=== PATIENT | male | born 1960 | race Caucasian/White ===

== ENCOUNTER 2020-02-27 00:37 | Outpatient (CLI) | payer BC, SELFPAY ==
[2020-02-27 19:34] LABS: SARS-CoV-2 RNA PCR Negative
== END 2020-02-27 00:38 | disposition home or self-care (01) ==
LOC: ANHCOVIDDT 00:37
PROVIDERS: PCP Internal Medicine; Visit Provider Internal Medicine Gastroenterology
DX: Z01.812 Encounter for preprocedural laboratory examination (principal); Z20.828 Contact with and (suspected) exposure to other viral communicable diseases
CPT/HCPCS: 87635; C9803; U0003

== ENCOUNTER 2020-02-29 01:43 | Day surgery (SDC) | payer BC, SELFPAY ==
[2020-02-16 13:34] VITALS: BMI 27.5
--- NOTE | 2020-02-27 14:43 | WPDANESEPPF ---
Anes - Initial Pre Proc Eval Procedure: Operation Date: 02/29/20 09:00 Proposed Procedures p Screening Colonoscopy - Daniel Hoover MD Date/Time: 02/27/20 14:43 Surgeon: Daniel Hoover MD Pre Op Diagnosis: Neoplasm Screening Patient Data Age: 59 Gender: M Height: 1.78 m Weight: 87 kg Allergies Allergy/AdvReac Type Severity Reaction Status Date / Time No Known Allergies Allergy Mild Verified 02/29/20 08:13 Home Medications Medication Instructions Recorded Confirmed Type aspirin 81 mg tablet,delayed 81 mg PO BID 09/15/19 02/16/20 History release glimepiride 2 mg tablet See Rx Instructions PO .COMPLEX 09/21/19 02/16/20 Rx #270 tablet losartan 50 mg tablet See Rx Instructions .ROUTE 09/22/19 02/16/20 Rx .COMPLEX #90 tablet sitagliptin 50 mg-metformin ER 2 tablet PO DAILY #180 tablet 01/26/20 02/16/20 Rx 1,000 mg tablet,extended release 24h mp empagliflozin 25 mg tablet 25 mg PO DAILY #90 tablet 02/21/20 Rx ezetimibe 10 mg tablet See Rx Instructions .ROUTE 02/21/20 Rx .COMPLEX #90 tablet Patient hx anesthesia problems: none Family hx anesthesia problems: none PMFSH Past Medical History Medical History (Updated 02/29/20 @ 08:41 by Keon Sexton DO) Benign essential hypertension Chronic obstructive pulmonary disease, unspecified DM w/o complication type II, uncontrolled History of CVA (cerebrovascular accident) 2012, right sided sensory deficit Polyneuropathy Surgical History Surgical History Status post bilateral hip replacements Social History Social History Smoking status: Never smoker Second hand tobacco smoke exposure: Yes Alcohol intake: never Anes - Eval Final PreProcedure Day of Procedure 02/27/20 14:43 Patient weight: overweight Heart: regular rate and rhythm Lungs: clear to auscultation and normal air movement Airway: Mallampati scale class II Neurological: alert and oriented Last oral intake: >/= 8 hours ASA classification: III Emergent: no Anesthetic plan: proceed Anesthesia type and monitoring: general GIVS and standard monitoring Informed Consent: The patient's anesthetic plan and its attendant risks and benefits were discussed with the patient/family/POA. Questions were solicited and answers provided to the satisfaction of the patient/family/POA.
[2020-02-29 08:14] VITALS: BMI 26.4
[2020-02-29 08:17] VITALS: BP 148/76; PULSE 75; RESP 20; TEMP 36.3; O2SAT 100
[2020-02-29] MEDS: LACTATED RINGERS 1,000 ML 150 ML IV CONT (08:30)
[2020-02-29 08:32] LABS: Glucose Point of Care 145 (65-105)
--- NOTE | 2020-02-29 08:54 | PM.HPGS ---
History of Present Illness History of Present Illness Consent: Risks, benefits, and alternatives have been discussed and questions answered. Patient agrees to proceed with procedure. Chief complaint: Neoplasm Screening Narrative: Everardo Martin is a 59 year old male here for screening colonoscopy, last one 10 years ago Review of Systems Constitutional: Constitutional: Denies headache(s) and Denies weakness Eyes: Eyes: Denies blurry vision ENT: Reports Normal hearing present, Denies headache(s) and Denies neck pain Cardiovascular: Cardiovascular: Denies chest pain and Denies dyspnea Respiratory: Respiratory: Denies dyspnea Gastrointestinal: Gastrointestinal: Reports no additional gastrointestinal complaints Genitourinary: Genitourinary: Denies dysuria Musculoskeletal: Musculoskeletal: Denies neck pain Integumentary/Breasts: Skin/Breast: Denies dry skin Neurologic: Reports Normal hearing present, Denies headache(s) and Denies weakness Psychiatric: Psychiatric: Denies anxiety Endocrine: Endocrine: Denies change in body appearance Hematologic/Lymphatic: Hematologic/Lymphatic: Denies easy bleeding Allergic/Immunologic: Allergic/Immunologic: Denies urticaria PMFSH Past Medical History Medical History (Updated 02/29/20 @ 08:41 by Keon Sexton DO) Benign essential hypertension Chronic obstructive pulmonary disease, unspecified DM w/o complication type II, uncontrolled History of CVA (cerebrovascular accident) 2012, right sided sensory deficit Polyneuropathy Surgical History Surgical History Status post bilateral hip replacements Social History Social History Smoking status: Never smoker Second hand tobacco smoke exposure: Yes Alcohol intake: never Meds Home Medications and Allergies Home Medications Medication Instructions Recorded Confirmed Type aspirin 81 mg tablet,delayed 81 mg PO BID 09/15/19 02/16/20 History release glimepiride 2 mg tablet See Rx Instructions PO .COMPLEX 09/21/19 02/16/20 Rx #270 tablet losartan 50 mg tablet See Rx Instructions .ROUTE 09/22/19 02/16/20 Rx .COMPLEX #90 tablet sitagliptin 50 mg-metformin ER 2 tablet PO DAILY #180 tablet 01/26/20 02/16/20 Rx 1,000 mg tablet,extended release 24h mp empagliflozin 25 mg tablet 25 mg PO DAILY #90 tablet 02/21/20 Rx ezetimibe 10 mg tablet See Rx Instructions .ROUTE 02/21/20 Rx .COMPLEX #90 tablet Allergies Allergy/AdvReac Type Severity Reaction Status Date / Time No Known Allergies Allergy Mild Verified 02/29/20 08:13 Vital Signs Vital Signs - 24 hr 02/29/20 08:17 Temperature 97.3 F L Pulse Rate 75 Respiratory Rate 20 Blood Pressure 148/76 H Pulse Oximetry 100 Exam Const: General: comfortable and no acute distress HENMT: General nose exam: Normal nares present Eyes: General: appearance normal, both eyes and all related structures Neck: Neck: no JVD Resp: Auscultation: clear to auscultation bilaterally Cardio: Rate: regular rate Rhythm: regular rhythm GI: Inspection: non-distended GI Palp: Yes Soft to palpation Skin: General skin exam: normal color Neuro: General: gait normal Speech: normal speech Extrem: General: normal to inspection Psych: Mental Status: mental status grossly normal Assessment and Plan Assessment and plan (1) Colon cancer screening: Code(s): Z12.11 - Encounter for screening for malignant neoplasm of colon Status: Acute Assessment and Plan: will proceed with colonoscopy (2) Chronic obstructive pulmonary disease, unspecified: Code(s): J44.9 - Chronic obstructive pulmonary disease, unspecified Status: Acute (3) DM w/o complication type II, uncontrolled: Code(s): E11.65 - Type 2 diabetes mellitus with hyperglycemia Status: Acute
[2020-02-29 09:18] VITALS: BP 106/65; PULSE 72; RESP 15; O2SAT 98
[2020-02-29 09:28] VITALS: BP 106/63; PULSE 71; RESP 17; O2SAT 97
[2020-02-29 09:38] VITALS: BP 127/76; PULSE 68; RESP 16; O2SAT 98
== END 2020-02-29 10:00 | disposition home or self-care (01) ==
PROVIDERS: PCP Internal Medicine; Visit Provider Internal Medicine Gastroenterology
PROC: 0DJD8ZZ Inspection of Lower Intestinal Tract, Via Natural or Artificial Opening Endoscopic (ICD-10-PCS; CPT 45378; principal; 2020-02-29 09:00)
DX: Z12.11 Encounter for screening for malignant neoplasm of colon (principal); K57.30 Diverticulosis of large intestine without perforation or abscess without bleeding; K64.8 Other hemorrhoids; J44.9 Chronic obstructive pulmonary disease, unspecified; I10 Essential (primary) hypertension; E11.42 Type 2 diabetes mellitus with diabetic polyneuropathy; Z86.73 Personal history of transient ischemic attack (TIA), and cerebral infarction without residual deficits; Z79.84 Long term (current) use of oral hypoglycemic drugs; Z79.82 Long term (current) use of aspirin; Z79.899 Other long term (current) drug therapy
CPT/HCPCS: 45378; J2704; J7120

== ENCOUNTER → 2020-11-05 12:06 | Outpatient (CLI) | payer BC, SELFPAY ==
--- NOTE | ~2020-11-05 | MR_ITS ---
EXAMINATION: MR lumbar spine wo con DATE: 11/05/2020 12:49 INDICATION: Lumbar radiculopathy. TECHNIQUE: Magnetic resonance imaging (MRI) of the lumbar spine was performed without intravenous con trast. Sequences included sagittal T2-weighted FSE, sagittal T2-weighted FS FSE, sagittal T1-weighted FSE, and axial T2-weighted FSE. COMPARISON: Lumbar spine radiographs 11/05/2020 FINDINGS: Bone alignment is normal. There is mild chronic anterior wedging of T12 with Schmorl's node s. Intervertebral disc heights are normal. The distal spinal cord signal intensity is normal. The con us medullaris is at T12. The following disc levels are specifically discussed: L1-L2: The disc does not extend beyond the endplate margin. There is mild bilateral facet joint osteo arthritis. There is no neural foraminal stenosis. There is no central canal stenosis. L2-L3: The disc does not extend beyond the endplate margin. There is mild bilateral facet joint osteo arthritis. There is no neural foraminal stenosis. There is no central canal stenosis. L3-L4: The disc does not extend beyond the endplate margin. There is no facet joint osteoarthritis. T here is no neural foraminal stenosis. There is no central canal stenosis. L4-L5: There is a right foraminal protrusion. There is no facet joint osteoarthritis. There is mild r ight neural foraminal stenosis. There is no central canal stenosis. L5-S1: The disc is bulging and has an annular fissure. There is mild bilateral facet joint osteoarthr itis. There is mild bilateral neural foraminal stenosis. There is mild central canal stenosis. IMPRESSION: 1. Mild lumbar spondylosis. Reviewed, dictated and finalized at location A. IMPRESSION: 1. Mild lumbar spondylosis.
--- NOTE | ~2020-11-05 | XR_ITS ---
EXAMINATION: XR lumbar spine 2-3V DATE: 11/05/2020 12:27 INDICATION: Lumbar radiculopathy. TECHNIQUE: 3 views of lumbar spine were obtained. COMPARISON: Lumbar spine MRI 11/05/2020 FINDINGS: Bone alignment is normal. Vertebral body heights and intervertebral disc heights are normal . There are endplate osteophytes at multiple levels. Facet joints are unremarkable. There are bilater al total hip arthroplasties. IMPRESSION: 1. Mild lumbar spondylosis. Reviewed, dictated and finalized at location A. IMPRESSION: 1. Mild lumbar spondylosis.
== END ==
PROVIDERS: Visit Provider Pain Medicine Interventional Pain Medicine
DX: M47.27 Other spondylosis with radiculopathy, lumbosacral region (principal); M47.26 Other spondylosis with radiculopathy, lumbar region; M16.9 Osteoarthritis of hip, unspecified; G60.9 Hereditary and idiopathic neuropathy, unspecified; M47.817 Spondylosis without myelopathy or radiculopathy, lumbosacral region; F41.1 Generalized anxiety disorder
CPT/HCPCS: 72100; 72148

== ENCOUNTER 2021-07-11 13:00 | Outpatient (RCR) | payer BC, SELFPAY ==
[2021-07-10 08:03] VITALS: BMI 27.4
[2021-07-10 08:12] VITALS: BMI 27.4
== END 2021-07-11 15:21 | disposition home or self-care (01) ==
LOC: ANHDMC 13:00
PROVIDERS: PCP Internal Medicine; Visit Provider Internal Medicine
DX: E11.65 Type 2 diabetes mellitus with hyperglycemia (principal); Z71.3 Dietary counseling and surveillance; Z71.89 Other specified counseling
CPT/HCPCS: 97802; G0108

== ENCOUNTER → 2023-01-05 08:03 | Outpatient (CLI) | payer BC, SELFPAY ==
--- NOTE | ~2023-01-05 | CT_ITS ---
CT Scan of the Chest without Contrast: Clinical Indication: Lung cancer screening, personal history of nicotine dependence Technique: Contiguous sections were acquired throughout the chest without intravenous contrast. Dose reduction technique was used on this scan by utilizing automated exposure control and iterative recon struction technique. The dose-length product (DLP) was 104.28 mGy-cm. COMPARISON: 02/18/2013 Findings: There is no evidence of any significant mediastinal, hilar or axillary lymphadenopathy. Atherosclerot ic calcifications of the aorta and coronary arteries are present. There is no evidence of pleural or pericardial effusion. The lungs are clear. No pulmonary nodules or infiltrates are noted. Images through the upper abdomen reveal no abnormalities. Impression: Lung RADS 1: Negative. 12 month follow-up screening CT advised. Reviewed, dictated and finalized at [facility]. Impression: Lung RADS 1: Negative. 12 month follow-up screening CT advised.
== END ==
PROVIDERS: PCP Family Medicine; Visit Provider Family Medicine
DX: Z12.2 Encounter for screening for malignant neoplasm of respiratory organs (principal); Z87.891 Personal history of nicotine dependence
CPT/HCPCS: 71271